=== PATIENT | male | born 1945 | race Caucasian/White ===

== ENCOUNTER 2023-06-26 14:07 | Day surgery (SDC) | payer OTHER ==
[~2023-06-26] VITALS: Ht 172.7 cm; Wt 77.1 kg
[~2023-06-26 14:07] MED LIST: traMADol HCL HCL 50 MG TABLET (ULTRAM) PO PRN
[2023-06-26 14:27] VITALS: BP_SYST 150; PULSE 92; RESP 18; TEMP 97.6; O2SAT 98
[2023-06-26] MEDS ORDERED: CEFAZOLIN 2 GM IVPB PREMIX 50 ML IV ONE (14:30)
[2023-06-26] MEDS ORDERED: fentaNYL CITRATE/PF 100 MCG/2 ML AMP IVP ONE (14:30)
[2023-06-26] MEDS ORDERED: KETOROLAC TROMETHAMINE 10 MG TABLET (TORADOL) PO PRN (17:30)
[2023-06-26] MEDS ORDERED: IBUPROFEN 600 MG TABLET PO PRN (17:30)
[2023-06-26] MEDS ORDERED: ACETAMINOPHEN 500 MG TABLET PO SCH (18:00)
[2023-06-26] MEDS ORDERED: cephALEXin 500 MG CAPSULE PO ONE (18:00)
[2023-06-26] MEDS ORDERED: OMEP20CA15 PO (18:54)
[2023-06-26] MEDS ORDERED: ATOR10TA68 PO (18:54)
[2023-06-26] MEDS ORDERED: FLUT100D INH (18:54)
[2023-06-26] MEDS ORDERED: AMLO10TA88 PO (18:54)
[2023-06-26] MEDS ORDERED: amLODIPine BESYLATE 10 MG TABLET PO ONE (21:30)
[2023-06-26] MEDS ORDERED: ATORVASTATIN 10 MG TABLET PO ONE (21:30)
[2023-06-27 01:14] LABS: HEMOGLOBIN 13.2 g/dL (14.0-18.0)
[2023-06-27 01:31] LABS: BASOPHILS # (AUTO) 0.1 K/uL (0.0-0.2); BASOPHILS % (AUTO) 0.7 % (0.0-2.0); EOSINOPHILS # (AUTO) 0.2 K/uL (0.0-0.4); EOSINOPHILS % (AUTO) 1.9 % (0.0-4.0); HEMATOCRIT 38.3 % (36-54); LYMPHOCYTES # (AUTO) 2.3 K/uL (1.0-5.5); LYMPHOCYTES % (AUTO) 23.8 % (20.5-51.5); MEAN CORPUSCULAR HEMOGLOBIN 32 pg (27-31); MEAN CORPUSCULAR HGB CONC 35 % (32-36); MEAN CORPUSCULAR VOLUME 92 fL (79.0-98.0); MONOCYTES # (AUTO) 0.8 K/uL (0.0-1.0); MONOCYTES % (AUTO) 8.1 % (1.7-9.3); NEUTROPHILS # (AUTO) 6.4 K/uL (1.8-7.7); NEUTROPHILS % (AUTO) 65.5 % (40.0-70.0); PLATELET COUNT (AUTO) 347 K/uL (130-430); RED BLOOD CELL COUNT(AUTO) 4.17 MIL/uL (4.2-6.2); RED CELL DISTRIBUTION WIDTH 13.4 % (9.0-15.0); WHITE BLOOD COUNT (AUTO) 9.7 K/uL (4.8-10.8)
[2023-06-27 01:37] LABS: PROTHROMBIN TIME 10.2 SECS (9.5-12.5)
[2023-06-27 01:44] LABS: ALANINE AMINOTRANSFERASE 18 U/L (12-78); ALBUMIN 3.6 g/dL (3.4-4.8); ANION GAP 11 (5-15); ASPARTATE AMINOTRANSFERASE 19 U/L (10-37); BILIRUBIN,DIRECT 0.2 mg/dL (0.0-0.3); CALCIUM 8.4 mg/dL (8.4-11.0); CARBON DIOXIDE 26 mmol/L (23-29); CHLORIDE 105 mmol/L (98-107); CREATININE 1.47 mg/dL (0.55-1.30); GLUCOSE 108 mg/dL (74-106); POTASSIUM 3.6 mmol/L (3.5-5.1); SODIUM SERUM 142 mmol/L (136-145); TOTAL BILIRUBIN 0.9 mg/dL (0.0-1.0); TOTAL PROTEIN, SERUM 6.8 g/dL (6.4-8.3); UREA NITROGEN, BLOOD 25 mg/dL (8-21)
[2023-06-27] MEDS ORDERED: cephALEXin 500 MG CAPSULE PO SCH (09:00)
[2023-06-27] MEDS ORDERED: TRAM50TA2 PO (10:59)
[2023-06-27] MEDS ORDERED: CEPH-548 PO (10:59)
[2023-06-27] MEDS ORDERED: IBUP-1969 PO (10:59)
[2023-06-27] MEDS ORDERED: ACET-2634 PO (10:59)
[2023-06-27] MEDS ORDERED: BUPIVACAINE /PF 0.25% 30 ML VIAL INJ ONE (12:00)
[2023-06-27] MEDS ORDERED: WATER FOR IRRIGATION,STERILE 1,000 ML IRRIG.SOLN IR ONE (12:00)
[2023-06-27] MEDS ORDERED: NS IRRIG SOLN 1000 ML IR ONE (12:00)
[2023-06-27] MEDS ORDERED: LIDOCAINE 1% 10 MG/ML, 20 ML MDV ONE (12:00)
[2023-06-27 14:31] VITALS: BP_SYST 148; PULSE 70; RESP 16; TEMP 97.6; O2SAT 95
[2023-06-27] MEDS ORDERED: amLODIPine BESYLATE 10 MG TABLET PO SCH (21:00)
[2023-06-27] MEDS ORDERED: ATORVASTATIN 10 MG TABLET PO SCH (21:00)
== END 2023-06-27 18:00 | disposition home or self-care (01) ==
LOC: SED 14:07 → SMU 17:23 → UNDOADMOB 17:23 → SMU 06-27 10:00 → SED 06-27 12:28 → SDS 06-27 17:00 → SMU 06-27 17:01 → SED 06-27 17:50 → SMU 06-27 17:50 → SDS 06-27 18:00
PROVIDERS: ATTEND Orthopaedic Surgery Sports Medicine
DX: S68.121A Partial traumatic metacarpophalangeal amputation of left index finger, initial encounter (principal); I10 Essential (primary) hypertension; Z88.5 Allergy status to narcotic agent; Z79.899 Other long term (current) drug therapy; Z79.01 Long term (current) use of anticoagulants; W31.82XA Contact with other commercial machinery, initial encounter; Y93.89 Activity, other specified; Y92.89 Other specified places as the place of occurrence of the external cause; Y99.0 Civilian activity done for income or pay
CPT/HCPCS: 73140; 99285; 26236; 80076; 80048; 85025; 85610; 36415; 96379; J0690; J3010; J3490; J2001

== ENCOUNTER 2024-01-23 17:09 | Inpatient (IN) | payer MEDICAID, OTHER ==
[~2024-01-23] VITALS: Ht 172.7 cm; Wt 80.3 kg
[~2024-01-23 17:09] MED LIST changes: +ACET-2634 PO; +AMLO10TA88 PO; +ATOR10TA68 PO; +CEPH-548 PO; +FLUT100D INH; +IBUP-1969 PO; +OMEP20CA15 PO; +TRAM50TA2 PO; -traMADol HCL HCL 50 MG TABLET (ULTRAM) PO PRN
[2024-01-23 17:10] VITALS: BP_SYST 139; PULSE 76; RESP 17; TEMP 97.8; O2SAT 94
[2024-01-23] MEDS: ONDANSETRON HCL 4 MG/2 ML VIAL IVP ONE (18:19)
[2024-01-23] MEDS: MORPHINE 2 MG/ML INJ. SYRINGE IVP ONE (18:22)
[2024-01-23] MEDS: ASPIRIN 81 MG TAB.CHEW PO ONE (18:23)
[2024-01-23 18:27] LABS: BASOPHILS # (AUTO) 0.1 K/uL (0.0-0.2); BASOPHILS % (AUTO) 0.5 % (0.0-2.0); EOSINOPHILS # (AUTO) 0.2 K/uL (0.0-0.4); EOSINOPHILS % (AUTO) 2.1 % (0.0-4.0); HEMATOCRIT 41.1 % (36-54); HEMOGLOBIN 14.1 g/dL (14.0-18.0); LYMPHOCYTES # (AUTO) 2.2 K/uL (1.0-5.5); LYMPHOCYTES % (AUTO) 22.2 % (20.5-51.5); MEAN CORPUSCULAR HEMOGLOBIN 32 pg (27-31); MEAN CORPUSCULAR HGB CONC 34 % (32-36); MEAN CORPUSCULAR VOLUME 92 fL (79.0-98.0); MONOCYTES # (AUTO) 0.6 K/uL (0.0-1.0); MONOCYTES % (AUTO) 6.4 % (1.7-9.3); NEUTROPHILS # (AUTO) 6.7 K/uL (1.8-7.7); NEUTROPHILS % (AUTO) 68.8 % (40.0-70.0); PLATELET COUNT (AUTO) 297 K/uL (130-430); RED BLOOD CELL COUNT(AUTO) 4.45 MIL/uL (4.2-6.2); RED CELL DISTRIBUTION WIDTH 13.5 % (9.0-15.0); WHITE BLOOD COUNT (AUTO) 9.8 K/uL (4.8-10.8)
[2024-01-23 18:42] LABS: ANION GAP 10 (5-15); CALCIUM 9.2 mg/dL (8.4-11.0); CARBON DIOXIDE 27 mmol/L (23-29); CHLORIDE 106 mmol/L (98-107); CREATININE 1.56 mg/dL (0.55-1.30); GLUCOSE 101 mg/dL (74-106); POTASSIUM 3.9 mmol/L (3.5-5.1); SODIUM SERUM 143 mmol/L (136-145); UREA NITROGEN, BLOOD 27 mg/dL (8-21)
[2024-01-23] MEDS ORDERED: cloNIDine HCL 0.1 MG TABLET PO PRN (20:30)
[2024-01-23] MEDS ORDERED: NITROGLYCERIN 0.4 MG TAB.SUBL SL PRN (21:00)
[2024-01-23] MEDS ORDERED: ACETAMINOPHEN 325 MG TABLET PO PRN (21:00)
[2024-01-23] MEDS ORDERED: ACETAMINOPHEN 500 MG TABLET PO PRN (21:15)
[2024-01-23] MEDS ORDERED: traMADol HCL HCL 50 MG TABLET (ULTRAM) PO PRN (21:15)
[2024-01-23] MEDS: ENOXAPARIN SODIUM 40 MG/0.4 ML SYRINGE SUBCUT SCH (21:44)
[2024-01-23 22:24] VITALS: BP_SYST 145; PULSE 67; RESP 18; TEMP 97.5
[2024-01-24] VITALS: BP_SYST 133; PULSE 84; RESP 18; TEMP 98; O2SAT 96
[2024-01-24 05:01] LABS: BASOPHILS % (AUTO) 0.6 % (0.0-2.0); EOSINOPHILS # (AUTO) 0.2 K/uL (0.0-0.4); HEMATOCRIT 40.9 % (36-54); HEMOGLOBIN 13.8 g/dL (14.0-18.0); LYMPHOCYTES # (AUTO) 2.8 K/uL (1.0-5.5); LYMPHOCYTES % (AUTO) 35.8 % (20.5-51.5); MEAN CORPUSCULAR HEMOGLOBIN 31 pg (27-31); MEAN CORPUSCULAR HGB CONC 34 % (32-36); MEAN CORPUSCULAR VOLUME 92 fL (79.0-98.0); MONOCYTES # (AUTO) 0.6 K/uL (0.0-1.0); MONOCYTES % (AUTO) 7.9 % (1.7-9.3); NEUTROPHILS # (AUTO) 4.1 K/uL (1.8-7.7); NEUTROPHILS % (AUTO) 52.7 % (40.0-70.0); PLATELET COUNT (AUTO) 290 K/uL (130-430); RED BLOOD CELL COUNT(AUTO) 4.44 MIL/uL (4.2-6.2); RED CELL DISTRIBUTION WIDTH 13.5 % (9.0-15.0); WHITE BLOOD COUNT (AUTO) 7.7 K/uL (4.8-10.8)
[2024-01-24 05:14] LABS: PROTHROMBIN TIME 10.7 SECS (9.5-12.5)
[2024-01-24 05:46] LABS: ALANINE AMINOTRANSFERASE 18 U/L (12-78); ALBUMIN 3.6 g/dL (3.4-4.8); ANION GAP 9 (5-15); CALCIUM 8.8 mg/dL (8.4-11.0); CARBON DIOXIDE 28 mmol/L (23-29); CHLORIDE 106 mmol/L (98-107); CREATININE 1.56 mg/dL (0.55-1.30); FREE T4 (FREE THYROXINE) 0.8 ng/dl (0.8-1.5); GLUCOSE 100 mg/dL (74-106); POTASSIUM 3.8 mmol/L (3.5-5.1); SODIUM SERUM 143 mmol/L (136-145); THYROID STIMULATING HORMONE 1.08 uIu/mL (0.36-3.74); TOTAL BILIRUBIN 1.4 mg/dL (0.0-1.0); TOTAL PROTEIN, SERUM 6.6 g/dL (6.4-8.3); UREA NITROGEN, BLOOD 26 mg/dL (8-21)
[2024-01-24] MEDS ORDERED: *LOVENOX 1MG/KG Q12H/PHARMACY XX ONE (07:00)
[2024-01-24 07:27] VITALS: BP_SYST 122; PULSE 58; RESP 18; TEMP 98.2; O2SAT 95
[2024-01-24 07:27] LABS: ASPARTATE AMINOTRANSFERASE 30 U/L (10-37)
[2024-01-24 08:20] VITALS: O2SAT 97
[2024-01-24] MEDS: ENOXAPARIN SODIUM 80 MG/0.8 ML SYRINGE SUBCUT SCH (08:47)
[2024-01-24] MEDS: ASPIRIN 81 MG TABLET(ECOTRIN) PO SCH (08:47)
[2024-01-24] MEDS: PANTOPRAZOLE SODIUM 40 MG TAB PO SCH (08:48)
[2024-01-24] MEDS: ATORVASTATIN 10 MG TABLET PO SCH (08:48)
[2024-01-24] MEDS: amLODIPine BESYLATE 10 MG TABLET PO SCH (08:49)
[2024-01-24] MEDS ORDERED: OMEPRAZOLE Non-Formulary 20 MG CAPSULE.DR PO SCH (09:00)
[2024-01-24 10:54] LABS: CHOLESTEROL 160 mg/dL (<200); HDL CHOLESTEROL 67 mg/dL (>45); TRIGLYCERIDES 86 mg/dL (30-150)
[2024-01-24 12:30] VITALS: BP_SYST 143; PULSE 63; RESP 19; TEMP 98.1; O2SAT 94
== END 2024-01-24 15:20 | disposition short-term general hospital (02) | DRG 190 ==
LOC: SED 17:09 → STU 20:18
PROVIDERS: ADMIT Internal Medicine; ATTEND Internal Medicine
DX: I21.4 Non-ST elevation (NSTEMI) myocardial infarction (principal); E78.5 Hyperlipidemia, unspecified; I12.9 Hypertensive chronic kidney disease with stage 1 through stage 4 chronic kidney disease, or unspecified chronic kidney disease; N18.30 Chronic kidney disease, stage 3 unspecified; Z79.899 Other long term (current) drug therapy; Z87.891 Personal history of nicotine dependence; Z88.5 Allergy status to narcotic agent; M19.90 Unspecified osteoarthritis, unspecified site
CPT/HCPCS: 36415; 71045; 80048; 80053; 80061; 83735; 83880; 84439; 84443; 84484; 85025; 85610; 85730; 93005; 93306; 96375; 99285; G0378; J1650; J2270; J2405